=== PATIENT | male | born 1950 | race Caucasian/White ===

== ENCOUNTER → 2024-03-11 | Outpatient (CLI) | payer MEDICARE, SELFPAY | END | disposition home or self-care (01) | LOC: PSN 09:09 | PROVIDERS: PCP Family Medicine; Referring Provider Internal Medicine Critical Care Medicine; Visit Provider Internal Medicine Critical Care Medicine | DX: F17.210 Nicotine dependence, cigarettes, uncomplicated (principal) | CPT/HCPCS: 94060; 94726; 94729 ==

== ENCOUNTER → 2024-03-16 | Outpatient (CLI) | payer MEDICARE, SELFPAY ==
[2024-03-16 12:28] VITALS: PULSE 56; PULSE 60; PULSE 69; PULSE 71; PULSE 72; PULSE 73; O2SAT 86; O2SAT 88; O2SAT 90; O2SAT 91; O2SAT 92; O2SAT 93; O2SAT 94
== END | disposition home or self-care (01) ==
LOC: PSN 11:57
PROVIDERS: PCP Family Medicine; Referring Provider Internal Medicine Critical Care Medicine; Visit Provider Internal Medicine Critical Care Medicine
DX: F17.210 Nicotine dependence, cigarettes, uncomplicated (principal)
CPT/HCPCS: 94618

== ENCOUNTER 2024-12-09 08:00 | Outpatient (RCR) | payer MEDICARE, SELFPAY ==
[2024-12-02 08:13] VITALS: BP 151/89; PULSE 75; RESP 18; TEMP 36.6
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
--- NOTE | 2024-12-03 09:28 | WC ---
PHOTO-LLE 12/02/24
--- NOTE | 2024-12-03 09:28 | WC ---
PHOTO-LLE 12/02/24
--- NOTE | 2024-12-03 09:32 | WC ---
PHOTO-LLE SUP 12/02/24
--- NOTE | 2024-12-03 09:32 | WC ---
PHOTO-LLE SUP 12/02/24
[2024-12-09 08:15] VITALS: BP 153/61; PULSE 58; RESP 18; TEMP 36.2
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
--- NOTE | 2024-12-09 13:56 | WC ---
PHOTO-LLE INF 12/09/24
--- NOTE | 2024-12-09 13:56 | WC ---
PHOTO-LLE INF 12/09/24
--- NOTE | 2024-12-09 13:59 | WC ---
PHOTO-LLE SUP 12/09/24
--- NOTE | 2024-12-09 13:59 | WC ---
PHOTO-LLE SUP 12/09/24
== END 2024-12-20 23:59 | disposition home or self-care (01) ==
LOC: WC 08:00
PROVIDERS: PCP Family Medicine; Referring Provider Family Medicine; Visit Provider Nurse Practitioner
DX: I83.023 Varicose veins of left lower extremity with ulcer of ankle (principal); L97.323 Non-pressure chronic ulcer of left ankle with necrosis of muscle; L97.822 Non-pressure chronic ulcer of other part of left lower leg with fat layer exposed; L03.116 Cellulitis of left lower limb; F17.210 Nicotine dependence, cigarettes, uncomplicated; Z79.82 Long term (current) use of aspirin; Z79.899 Other long term (current) drug therapy
CPT/HCPCS: 11042; 99213; G0463

== ENCOUNTER 2025-01-13 08:00 | Outpatient (RCR) | payer MEDICARE, SELFPAY ==
[2024-12-23 08:22] VITALS: BP 148/86; PULSE 72; RESP 18; TEMP 36.1
--- NOTE | 2024-12-23 12:34 | PN.PCM_ITS ---
History of Present Illness Date of Service: 12/23/24 Chief Complaint: Left lower leg cellulitis and open wounds from blisters History of Wound: 74-year-old white male who had been apparently hiking and was wearing hiking boots and not wearing his compression stockings and not taking his water pills while on vacation developed open ulcers on his left lower leg and swelling. He states his leg is taken a lot of beatings over the year foots been broken a couple times toes have been smashed and so it is always slightly swollen at the ankle. But the ulcers and the discoloration on his lower leg is new. Recently he just had his carotids cleaned out by Dr. Curran I suggested he go back to Dr. Curran about his lower legs also get studies done I have them checked out for his veins and arteries of that foot and leg. Progress of Wound: The superior wound is is completely healed and now are just left with the left leg inferior wound. He is using Aquacel extra with Adaptic over top and XL as a P dressing over top which seems to be working well for him. Still has some little bit of depth but it is healing it is positive smaller than it has been in the past. and daughter appear with him at dressing changes and helped him a lot. He is compliant with wearing compression Subjective Subjective Patient is very anxious to have it healed but being compliant with his dressing changes and compression Objective Data Objective Data No sign of infection cultures came back negative patient doing well with the dressing changes and already 1 has healed and he just has 1 to go. Vital Signs: Vital Signs Temp Pulse Resp BP 97 F L 72 18 148/86 H 12/23/24 08:22 12/23/24 08:22 12/23/24 08:22 12/23/24 08:22 Physical Exam Const oriented x3 General Appearance: cooperative Exam Limitations: no limitations HEENT normocephalic Head and Scalp: normal to inspection Face and Sinus: normal facial exam Nose: external nose normal General Ear: hearing grossly impaired External Ear: external ears normal Eyes PERRL General Eye: normal appearance of both eyes Neck full ROM General: normal visual inspection Resp normal respiratory effort Effort and Inspection: able to speak in complete sentences Auscultation: clear to auscultation bilaterally Cardio regular rate and regular rhythm Palpation: normal PMI Rate: regular rate Rhythm: regular rhythm GI Auscultation: normoactive bowel sounds Palpation: soft and no hepatosplenomegaly external exam normal Extremity General Extremity: normal exam except as noted and other findings Other Details: Left lower leg has 2 open ulcers. Edema of the lower leg some discoloration staining the skin. Neuro oriented x3 Psych Appearance: grossly normal Speech: normal speech Thought Content: normal thought content Judgement: judgement good Debridement Note Debridement Note Post-Debridement Measurements and Additional Note: Post-Debridement Measurements/Treatment - Nurse 1 - General Ulcer Assessment Start: 12/23/24 08:22 Freq: Status: Active Protocol: ARAM Activity Type Activity Date Activity User E-sign Co-sign Detail Recorded Client Recorded Date Recorded By Document 12/23/24 08:22 ENRIQUE [id number] 12/23/24 08:25 RB 12/23/24 08:22 WC - Today's Visit Information Type of service Follow-up Visit (Physician/CORPORATE GENERAL MANAGER ) Arrival Mode Ambulatory Transfer Assistance None Patient Identification Verified (Name & Yes ) Patient Requires Transmission-Based No Precautions Vital Signs Temperature (97.8 F-99.1 F) 97 F L Temperature Source Temporal Pulse Rate (60-100) 72 Pulse Location Monitor Respiratory Rate (12-18) 18 Respiratory rate source Observation Blood Pressure (90/60-120/80) 148/86 H Blood Pressure Mean (mm Hg) 106 Source Monitor Position Semi-Fowlers Blood Pressure Location Left Arm History Since Last Visit- (Skip if this is Patient's initial visit) Have you changed medications since your No last visit? Any new allergies or adverse reactions No Had a fall/change in ADL's that may No increase risk of falls Signs or symptoms of abuse and/or No neglect since last visit Have you been in the hospital since your No last visit? Has dressing in place as prescribed Yes Has compression in place as prescribed Yes Has offloadiing in place as prescribed N/A Experienced any changes in pain level or No management Left Footwear Regular Shoe Right Footwear Regular Shoe Pain Scale: 0-10 Numeric Is Patient Pain Free? Yes - Nurse 1 - General Ulcer Measurement Start: 12/23/24 08:22 Freq: Status: Active Protocol: Activity Type Activity Date Activity User E-sign Co-sign Detail Recorded Client Recorded Date Recorded By Document 12/23/24 08:22 ENRIQUE [id number] 12/23/24 08:25 RB 12/23/24 08:22 Wound Center Nurse 1 #2 LLE Sup -Combined with other wound No -Current Size (cm) - Length 0.1 -Current Size (cm) - Width 0.1 -Current Size (cm) - Depth 0.1 -Total Square Cm 0.01 -Photo Taken Yes -Tunneling No -Undermining/Tunneling No -Circular Undermining No -Exudate Amt Medium -Exudate Type Serosanguineous -Wound Margin Distinct, Outline Attached -Granulation Amt Medium (34-66%) -Granulation Quality [place] -Slough/Fibrin Yes -Necrosis Amt Medium (34-66%) -Necrotic Tissue Type Adherent Slough -Structure Exposed N/A -Texture (Dania-wound Skin Appearance) Assessed -Moisture (Dania-wound Skin Appearance) Assessed, Maceration -Color (Dania-wound Skin Appearance) Assessed -Temperature (Dania-wound Skin No Abnormality Appearance) (Pt Warm) -Tenderness on Palpation (Dania-wound No Skin Appearance) -Ulcer Cleansing Wound Cleanser -Foul Odor after Cleansing No -Anesthetic Used 5% Lidocaine Gel #1 LLe Inf -Combined with other wound No -Current Size (cm) - Length 1.7 -Current Size (cm) - Width 1 -Current Size (cm) - Depth 0.1 -Total Square Cm 1.7 -Photo Taken Yes -Tunneling No -Undermining/Tunneling No -Circular Undermining No -Exudate Amt Medium -Exudate Type Serosanguineous -Wound Margin Distinct, Outline Attached -Granulation Amt Medium (34-66%) -Granulation Quality [place] -Slough/Fibrin Yes -Necrosis Amt Medium (34-66%) -Necrotic Tissue Type Adherent Slough -Structure Exposed N/A -Texture (Dania-wound Skin Appearance) Assessed -Moisture (Dania-wound Skin Appearance) Assessed, Maceration -Color (Dania-wound Skin Appearance) Assessed -Temperature (Dania-wound Skin No Abnormality Appearance) (Pt Warm) -Tenderness on Palpation (Dania-wound No Skin Appearance) -Ulcer Cleansing Wound Cleanser -Foul Odor after Cleansing No -Anesthetic Used 5% Lidocaine Gel Lower Limb Edema Present Yes Left Calf (cm) 36.2 Left Ankle (cm) 25 WC - Nurse 2 - General Ulcer CM Notes Start: 12/23/24 08:22 Freq: Status: Active Protocol: Activity Type Activity Date Activity User E-sign Co-sign Detail Recorded Client Recorded Date Recorded By Document 12/23/24 08:30 [facility] [id number] 12/23/24 08:33 [facility] 12/23/24 08:30 Wound Center Nurse 2 #2 LLE Sup -Time 08:31 -Procedure Performed No -Post Debridement (cm) - Length 0 -Post Debridement (cm) - Width 0 -Post Debridement (cm) - Depth 0 -Total Square (Post) (cm) 0 -Area of Debridement (cm) - Length 0 -Area of Debridement (cm) - Width 0 -Total Square (Area) (cm) 0 -Wound/Ulcer Outcome Healed- Epithelialized -Bleeding Controlled with NA #1 LLe Inf -Time 08:31 -Correct Patient Yes -Correct Side, Site, Position Yes -Correct Procedure Yes -Procedure Performed Yes -Type of Procedure Debridement -Clinical Debridement Subcutaneous -Tissue Removed Subcutaneous -Post Debridement (cm) - Length 2 -Post Debridement (cm) - Width 1.2 -Post Debridement (cm) - Depth 0.1 -Total Square (Post) (cm) 2.4 -Area of Debridement (cm) - Length 2 -Area of Debridement (cm) - Width 1.2 -Total Square (Area) (cm) 2.4 -Tunneling No -Undermining/Tunneling No -Circular Undermining No -Wound/Ulcer Outcome Not Healed -Ulcer Cleansing Rinsed/ Irrigated with Saline -Foul Odor after Cleansing No -Bioengineered Tissue No -Bleeding Controlled with Pressure -Treatment Response Procedure Tolerated Well -Debridement - Subq, 1st 20sq cm Yes Pain Scale: 0-10 Numeric Is Patient Pain Free? Yes WC - Nurse 3 - General Ulcer D/C NN Start: 12/23/24 08:22 Freq: Status: Active Protocol: Activity Type Activity Date Activity User E-sign Co-sign Detail Recorded Client Recorded Date Recorded By Document 12/23/24 08:47 RB [id number] 12/23/24 08:48 RB 12/23/24 08:47 Wound Care Center Nurse 3 #1 LLe Inf -Ulcer Cleansing Rinsed/ Irrigated with Saline -Primary Dressing Applied Aquacel Extra, NonAdherent Contact Layer, Silicone Border Foam 6x6 -Aquacel Extra 1 -Silicone Border Foam 6x6 1 LLE -Tubular Bandage Double Layer -Size of Tubigrip Used Size E -Size E ($) 2 Treatment Response Procedure Tolerated Well Pain Scale: 0-10 Numeric Is Patient Pain Free? Yes WC - Visit Discharge Discharge Condition Stable Ambulatory Status Ambulatory Transportation Private Auto Medication Reconcilliation completed & No provided to patient/care provider Clinical Summary of Care Provided Yes Additional Wound Wound debrided: Inferior ulcer left leg Laterality: Left Type of Debridement: Excisional debridement Anesthesia Used: 5% Lidocaine Gel Depth: in the subcutaneous layer Percentage of wound debrided: 100 Instrument Used: 5mm curette Tissue Removed: Slough some fibrin and devitalized tissue Severity: Fat Layer Exposed Amount of bleeding with debridement: Mild Bleeding Controlled with: Compression and gauze Patient tolerated procedure: Patient tolerated procedure well Assessment/Plan Assessment/Plan (1) 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 Curran about his lower extremity veins and arteries to be worked up for blockages in the veins connectors (2) Non-pressure ulcer of left lower extremity with fat layer exposed: CODE(S): L97.922 - Non-pressure chronic ulcer of unspecified part of left lower leg with fat layer exposed PLAN: Wash left leg with antibacterial soap and water pat dry. Apply Aquacel extra to wound base moistened with Adaptic over top and a absorbent [place] SAP dressing over top. This will be done every day Apply double layer Tubigrip to the left leg and to the right leg he can continue wearing his compression stocking Follow-up in 1 week (3) Venous ulcer of left leg: CODE(S): I83.029 - Varicose veins of left lower extremity with ulcer of unspecified site; L97.929 - Non-pressure chronic ulcer of unspecified part of le ft lower leg with unspecified severity
--- NOTE | 2024-12-24 09:23 | WC ---
PHOTO- LLE 12/23/24
[2024-12-30 08:22] VITALS: BP 125/70; PULSE 76; RESP 18; TEMP 36.1
--- NOTE | 2024-12-30 11:25 | PCM.WC.PN ---
History of Present Illness Date of Service: 12/30/24 Chief Complaint: Left lower leg cellulitis and open wounds from blisters History of Wound: 74-year-old white male who had been apparently hiking and was wearing hiking boots and not wearing his compression stockings and not taking his water pills while on vacation developed open ulcers on his left lower leg and swelling. He states his leg is taken a lot of beatings over the year foots been broken a couple times toes have been smashed and so it is always slightly swollen at the ankle. But the ulcers and the discoloration on his lower leg is new. Recently he just had his carotids cleaned out by Dr. Curran I suggested he go back to Dr. Curran about his lower legs also get studies done I have them checked out for his veins and arteries of that foot and leg. Progress of Wound: The superior wound is is completely healed and now are just left with the left leg inferior wound. He is using Aquacel extra with Adaptic over top and XL as a dressing over top which seems to be working well for him. Still has some little bit of depth but it is healing it is positive smaller than it has been in the past. and daughter appear with him at dressing changes and helped him a lot. He is compliant with wearing compression Subjective Subjective Patient is happy with outcomes still getting smaller but it is slow Objective Data Objective Data No sign of infection measurements are smaller more shallow looks more superficial no redness around the area Vital Signs: Vital Signs Temp Pulse Resp BP 97 F L 76 18 125/70 H 12/30/24 08:22 12/30/24 08:22 12/30/24 08:22 12/30/24 08:22 Lab / Micro Data Attestation: I reviewed the patient's lab results. Physical Exam Const oriented x3 General Appearance: cooperative Exam Limitations: no limitations HEENT normocephalic Head and Scalp: normal to inspection Face and Sinus: normal facial exam Nose: external nose normal General Ear: hearing grossly impaired External Ear: external ears normal Eyes PERRL General Eye: normal appearance of both eyes Neck full ROM General: normal visual inspection Resp normal respiratory effort Effort and Inspection: able to speak in complete sentences Auscultation: clear to auscultation bilaterally Cardio regular rate and regular rhythm Palpation: normal PMI Rate: regular rate Rhythm: regular rhythm GI Auscultation: normoactive bowel sounds Palpation: soft and no hepatosplenomegaly external exam normal Extremity General Extremity: normal exam except as noted and other findings Other Details: Left lower leg has 2 open ulcers. Edema of the lower leg some discoloration staining the skin. Neuro oriented x3 Psych Appearance: grossly normal Speech: normal speech Thought Content: normal thought content Judgement: judgement good Debridement Note Debridement Note Post-Debridement Measurements and Additional Note: Post-Debridement Measurements/Treatment - Nurse 1 - General Ulcer Assessment Start: 12/23/24 08:22 Freq: Status: Active Protocol: [facility] Activity Type Activity Date Activity User E-sign Co-sign Detail Recorded Client Recorded Date Recorded By Document 12/23/24 08:22 RB [id number] 12/23/24 08:25 RB Document 12/30/24 08:22 RB [id number] 12/30/24 08:24 RB 12/23/24 12/30/24 08:22 08:22 - Today's Visit Information Type of service Follow-up Visit Follow-up Visit (Physician/DOORPERSON OR LUGGAGE PORTER (Physician/DOORPERSON OR LUGGAGE PORTER ) ) Arrival Mode Ambulatory Ambulatory Transfer Assistance None None Patient Identification Verified (Name & Yes Yes ) Patient Requires Transmission-Based No No Precautions Vital Signs Temperature (97.8 F-99.1 F) 97 F L 97 F L Temperature Source Temporal Temporal Pulse Rate (60-100) 72 76 Pulse Location Monitor Monitor Respiratory Rate (12-18) 18 18 Respiratory rate source Observation Observation Blood Pressure (90/60-120/80) 148/86 H 125/70 H Blood Pressure Mean (mm Hg) 106 88 Source Monitor Monitor Position Semi-Fowlers Semi-Fowlers Blood Pressure Location Left Arm Left Arm History Since Last Visit- (Skip if this is Patient's initial visit) Have you changed medications since your No No last visit? Any new allergies or adverse reactions No No Had a fall/change in ADL's that may No No increase risk of falls Signs or symptoms of abuse and/or No No neglect since last visit Have you been in the hospital since your No No last visit? Has dressing in place as prescribed Yes Yes Has compression in place as prescribed Yes Yes Has offloadiing in place as prescribed N/A N/A Experienced any changes in pain level or No No management Left Footwear Regular Shoe Regular Shoe Right Footwear Regular Shoe Regular Shoe Pain Scale: 0-10 Numeric Is Patient Pain Free? Yes Yes WC - Nurse 1 - General Ulcer Measurement Start: 12/23/24 08:22 Freq: Status: Active Protocol: Activity Type Activity Date Activity User E-sign Co-sign Detail Recorded Client Recorded Date Recorded By Document 12/23/24 08:22 RB [id number] 12/23/24 08:25 RB Document 12/30/24 08:22 RB [id number] 12/30/24 08:24 RB 12/23/24 12/30/24 08:22 08:22 Wound Center Nurse 1 #2 LLE Sup -Combined with other wound No -Current Size (cm) - Length 0.1 -Current Size (cm) - Width 0.1 -Current Size (cm) - Depth 0.1 -Total Square Cm 0.01 -Photo Taken Yes -Tunneling No -Undermining/Tunneling No -Circular Undermining No -Exudate Amt Medium -Exudate Type Serosanguineous -Wound Margin Distinct, Outline Attached -Granulation Amt Medium (34-66%) -Granulation Quality [place] -Slough/Fibrin Yes -Necrosis Amt Medium (34-66%) -Necrotic Tissue Type Adherent Slough -Structure Exposed N/A -Texture (Dania-wound Skin Appearance) Assessed -Moisture (Dania-wound Skin Appearance) Assessed, Maceration -Color (Dania-wound Skin Appearance) Assessed -Temperature (Dania-wound Skin No Abnormality Appearance) (Pt Warm) -Tenderness on Palpation (Dania-wound No Skin Appearance) -Ulcer Cleansing Wound Cleanser -Foul Odor after Cleansing No -Anesthetic Used 5% Lidocaine Gel #1 LLe Inf -Combined with other wound No No -Current Size (cm) - Length 1.7 1.4 -Current Size (cm) - Width 1 0.7 -Current Size (cm) - Depth 0.1 0.1 -Total Square Cm 1.7 0.98 -Photo Taken Yes Yes -Tunneling No No -Undermining/Tunneling No No -Circular Undermining No No -Exudate Amt Medium Medium -Exudate Type Serosanguineous Serosanguineous -Wound Margin Distinct, Distinct, Outline Outline Attached Attached -Granulation Amt Medium (34-66%) Medium (34-66%) -Granulation Quality [place] -Slough/Fibrin Yes Yes -Necrosis Amt Medium (34-66%) Small (1-33%) -Necrotic Tissue Type Adherent Slough Adherent Slough -Structure Exposed N/A N/A -Texture (Dania-wound Skin Appearance) Assessed Assessed -Moisture (Daina-wound Skin Appearance) Assessed, Assessed Maceration -Color (Dania-wound Skin Appearance) Assessed Assessed -Temperature (Dania-wound Skin No Abnormality No Abnormality Appearance) (Pt Warm) (Pt Warm) -Tenderness on Palpation (Dania-wound No No Skin Appearance) -Ulcer Cleansing Wound Cleanser Wound Cleanser -Foul Odor after Cleansing No No -Anesthetic Used 5% Lidocaine 5% Lidocaine Gel Gel Lower Limb Edema Present Yes Yes Left Calf (cm) 36.2 36.8 Left Ankle (cm) 25 24.5 WC - Nurse 2 - General Ulcer CM Notes Start: 12/23/24 08:22 Freq: Status: Active Protocol: Activity Type Activity Date Activity User E-sign Co-sign Detail Recorded Client Recorded Date Recorded By Document 12/23/24 08:30 [facility] [id number] 12/23/24 08:33 [facility] Document 12/30/24 08:30 [facility] [id number] 12/30/24 08:34 [facility] 12/23/24 12/30/24 08:30 08:30 Wound Center Nurse 2 #2 LLE Sup -Time 08:31 -Procedure Performed No -Post Debridement (cm) - Length 0 -Post Debridement (cm) - Width 0 -Post Debridement (cm) - Depth 0 -Total Square (Post) (cm) 0 -Area of Debridement (cm) - Length 0 -Area of Debridement (cm) - Width 0 -Total Square (Area) (cm) 0 -Wound/Ulcer Outcome Healed- Epithelialized -Bleeding Controlled with NA #1 LLe Inf -Time 08:31 08:31 -Correct Patient Yes Yes -Correct Side, Site, Position Yes Yes -Correct Procedure Yes Yes -Procedure Performed Yes Yes -Type of Procedure Debridement Debridement -Clinical Debridement Subcutaneous Subcutaneous -Tissue Removed Subcutaneous Subcutaneous -Post Debridement (cm) - Length 2 1.8 -Post Debridement (cm) - Width 1.2 1.2 -Post Debridement (cm) - Depth 0.1 0.1 -Total Square (Post) (cm) 2.4 2.16 -Area of Debridement (cm) - Length 2 1.8 -Area of Debridement (cm) - Width 1.2 1.2 -Total Square (Area) (cm) 2.4 2.16 -Tunneling No No -Undermining/Tunneling No No -Circular Undermining No No -Wound/Ulcer Outcome Not Healed Not Healed -Ulcer Cleansing Rinsed/ Rinsed/ Irrigated with Irrigated with Saline Saline -Foul Odor after Cleansing No No -Bioengineered Tissue No No -Bleeding Controlled with Pressure Pressure -Treatment Response Procedure Procedure Tolerated Well Tolerated Well -Debridement - Subq, 1st 20sq cm Yes Yes Pain Scale: 0-10 Numeric Is Patient Pain Free? Yes Yes - Nurse 3 - General Ulcer D/C NN Start: 12/23/24 08:22 Freq: Status: Active Protocol: Activity Type Activity Date Activity User E-sign Co-sign Detail Recorded Client Recorded Date Recorded By Document 12/23/24 08:47 [id number] 12/23/24 08:48 Document 12/30/24 08:46 [facility] [id number] 12/30/24 08:48 [facility] 12/23/24 12/30/24 08:47 08:46 Wound Care Center Nurse 3 #1 LLe Inf -Ulcer Cleansing Rinsed/ Irrigated with Saline -Primary Dressing Applied Aquacel Extra, Aquacel Extra, NonAdherent Silicone Border Contact Layer, Foam 4x4 Silicone Border Foam 6x6 -Other Dressing ADAPTIC, FOAM -Aquacel Extra 1 1 -Silicone Border Foam 4x4 1 -Silicone Border Foam 6x6 1 LLE -Tubular Bandage Double Layer Double Layer -Size of Tubigrip Used Size E Size E -Size E ($) 2 2 Treatment Response Procedure Tolerated Well Pain Scale: 0-10 Numeric Is Patient Pain Free? Yes Yes - Visit Discharge Discharge Condition Stable Stable Ambulatory Status Ambulatory Ambulatory Transportation Private Auto Private Auto Medication Reconcilliation completed & No No provided to patient/care provider Clinical Summary of Care Provided Yes Yes Notes: NO QUESTIONS COMMENTS OR CONCERNS FROM PATIENT. VERBALIZED UNDERSTANDING OF WOUND DRESSING. 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 Curran about his lower extremity veins and arteries to be worked up for blockages in the veins connectors (2) Non-pressure ulcer of left lower extremity with fat layer exposed: CODE(S): L97.922 - Non-pressure chronic ulcer of unspecified part of left lower leg with fat layer exposed PLAN: Wash left leg with antibacterial soap and water pat dry. Apply Aquacel extra to wound base moistened with Adaptic over top and a absorbent [place] SAP dressing over top. This will be done every day Apply double layer Tubigrip to the left leg and to the right leg he can continue wearing his compression stocking Follow-up in 1 week (3) Venous ulcer of left leg: CODE(S): I83.029 - Varicose veins of left lower extremity with ulcer of unspecified site; L97.929 - Non-pressure chronic ulcer of unspecified part of left lower leg with unspecified severity
--- NOTE | 2024-12-30 12:47 | WC ---
PHOTO-LLE INF 12/30/24
[2025-01-06 08:14] VITALS: BP 149/76; PULSE 59; RESP 18; TEMP 35.8
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
[2025-01-13 08:14] VITALS: BP 146/58; PULSE 56; RESP 18; TEMP 36.2
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
--- NOTE | 2025-01-14 14:14 | WC ---
PHOTO-LLE 01/13/25
== END 2025-01-19 23:59 | disposition home or self-care (01) ==
LOC: WC 08:00
PROVIDERS: PCP Family Medicine; Referring Provider Family Medicine; Visit Provider Nurse Practitioner
DX: I83.028 Varicose veins of left lower extremity with ulcer other part of lower leg (principal); L97.822 Non-pressure chronic ulcer of other part of left lower leg with fat layer exposed; L03.116 Cellulitis of left lower limb; R60.0 Localized edema
CPT/HCPCS: 11042

== ENCOUNTER 2025-01-27 08:00 | Outpatient (RCR) | payer MEDICARE, SELFPAY ==
[2025-01-20 08:15] VITALS: BP 148/86; PULSE 67; RESP 16; TEMP 36.1
--- NOTE | 2025-01-20 12:36 | PCM.WC.PN ---
History of Present Illness Date of Service: 01/20/25 Chief Complaint: Left lower leg cellulitis and open wounds from blisters History of Wound: 74-year-old white male who had been apparently hiking and was wearing hiking boots and not wearing his compression stockings and not taking his water pills while on vacation developed open ulcers on his left lower leg and swelling. He states his leg is taken a lot of beatings over the year foots been broken a couple times toes have been smashed and so it is always slightly swollen at the ankle. But the ulcers and the discoloration on his lower leg is new. Recently he just had his carotids cleaned out by Dr. Curran I suggested he go back to Dr. Curran about his lower legs also get studies done I have them checked out for his veins and arteries of that foot and leg. Progress of Wound: Left lower inferior ocasio is almost healed probably another week we will switch him over to the Promogran from [employer] and see we can close this up it is very superficial. Subjective Subjective Patient is pleased that he will be healed in a week Objective Data Objective Data No sign of infection skin color is continuity is good it is all pink and normal color and flush. No sign of infection healing well describes no pain Vital Signs: Vital Signs Temp Pulse Resp BP 97 F L 67 16 148/86 H 01/20/25 08:15 01/20/25 08:15 01/20/25 08:15 01/20/25 08:15 Physical Exam Const oriented x3 General Appearance: cooperative Exam Limitations: no limitations HEENT normocephalic Head and Scalp: normal to inspection Face and Sinus: normal facial exam Nose: external nose normal General Ear: hearing grossly impaired External Ear: external ears normal Eyes PERRL General Eye: normal appearance of both eyes Neck full ROM General: normal visual inspection Resp normal respiratory effort Effort and Inspection: able to speak in complete sentences Auscultation: clear to auscultation bilaterally Cardio regular rate and regular rhythm Palpation: normal PMI Rate: regular rate Rhythm: regular rhythm GI Auscultation: normoactive bowel sounds Palpation: soft and no hepatosplenomegaly external exam normal Extremity General Extremity: normal exam except as noted and other findings Other Details: Left lower leg has 2 open ulcers. Edema of the lower leg some discoloration staining the skin. 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 Any new allergies or adverse reactions No Had a fall/change in ADL's that may No increase risk of falls Signs or symptoms of abuse and/or No neglect since last visit Have you been in the hospital since your No last visit? Has dressing in place as prescribed Yes Has compression in place as prescribed Yes Has offloadiing in place as prescribed N/A Experienced any changes in pain level or No management Left Footwear Regular Shoe Right Footwear Regular Shoe Pain Scale: 0-10 Numeric Is Patient Pain Free? Yes [facility] Nurse 1 - General Ulcer Measurement Start: 01/20/25 08:15 Freq: Status: Active Protocol: Activity Type Activity Date Activity User E-sign Co-sign Detail Recorded Client Recorded Date Recorded By Document 01/20/25 08:15 ANDRIY [id number] 01/20/25 08:19 CP 01/20/25 08:15 Wound Center Nurse 1 #1 LLe Inf -Current Size (cm) - Length 1 -Current Size (cm) - Width 0.4 -Current Size (cm) - Depth 0.1 -Total Square Cm 0.4 -Date of Last Picture (Recall this 10/01/25 field) -Wound Margin Flat & Intact -Granulation Amt Large (67-100%) -Granulation Quality [place] -Slough/Fibrin Yes -Necrosis Amt Small (1-33%) -Necrotic Tissue Type Adherent Slough -Structure Exposed N/A -Texture (Dania-wound Skin Appearance) No Abnormality -Moisture (Dania-wound Skin Appearance) No Abnormality -Color (Dania-wound Skin Appearance) No Abnormality -Temperature (Dania-wound Skin No Abnormality Appearance) (Pt Warm) -Tenderness on Palpation (Dania-wound No Skin Appearance) -Ulcer Cleansing Soap and Water -Foul Odor after Cleansing No -Anesthetic Used 5% Lidocaine Gel Left Calf (cm) 38 Left Ankle (cm) 24 WC - Nurse 2 - General Ulcer CM Notes Start: 01/20/25 08:15 Freq: Status: Active Protocol: Activity Type Activity Date Activity User E-sign Co-sign Detail Recorded Client Recorded Date Recorded By Document 01/20/25 08:35 DS [id number] 01/20/25 08:38 DS 01/20/25 08:35 Wound Center Nurse 2 #1 LLe Inf -Time 08:35 -Correct Patient Yes -Correct Side, Site, Position Yes -Correct Procedure Yes -Procedure Performed Yes -Type of Procedure Debridement -Clinical Debridement Subcutaneous -Tissue Removed Subcutaneous -Post Debridement (cm) - Length 0.9 -Post Debridement (cm) - Width 0.2 -Post Debridement (cm) - Depth 0.1 -Total Square (Post) (cm) 0.18 -Area of Debridement (cm) - Length 0.9 -Area of Debridement (cm) - Width 0.2 -Total Square (Area) (cm) 0.18 -Tunneling No -Undermining/Tunneling No -Circular Undermining No -Wound/Ulcer Outcome Not Healed -Ulcer Cleansing Rinsed/ Irrigated with Saline -Foul Odor after Cleansing No -Bioengineered Tissue No -Bleeding Controlled with Pressure -Treatment Response Procedure Tolerated Well -Debridement - Subq, 1st 20sq cm Yes Pain Scale: 0-10 Numeric Is Patient Pain Free? Yes - Nurse 3 - General Ulcer D/C NN Start: 01/20/25 08:15 Freq: Status: Active Protocol: Activity Type Activity Date Activity User E-sign Co-sign Detail Recorded Client Recorded Date Recorded By Document 01/20/25 08:44 CP [id number] 01/20/25 08:46 CP 01/20/25 08:44 Wound Care Center Nurse 3 #1 LLe Inf -Ulcer Cleansing Rinsed/ Irrigated with Saline -Primary Dressing Applied Promogran, Silicone Border Foam 4x4 -Promogran 1 -Silicone Border Foam 4x4 1 LLE -Tubular Bandage Double Layer -Size of Tubigrip Used Size E -Size E ($) 2 Pain Scale: 0-10 Numeric Is Patient Pain Free? Yes WC - Visit Discharge Discharge Condition Stable Ambulatory Status Ambulatory Transportation Private Auto Clinical Summary of Care Provided Yes Additional Wound Wound debrided: Inferior ulcer left leg Laterality: Left Type of Debridement: Excisional debridement Anesthesia Used: 5% Lidocaine Gel Depth: in the subcutaneous layer Percentage of wound debrided: 100 Instrument Used: 3mm curette Tissue Removed: Slough some fibrin and devitalized tissue Severity: Fat Layer Exposed Amount of bleeding with debridement: Mild Bleeding Controlled with: Compression and gauze Patient tolerated procedure: Patient tolerated procedure well Assessment/Plan Assessment/Plan (1) 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 Curran about his lower extremity veins and arteries to be worked up for blockages in the veins connectors (2) Non-pressure ulcer of left lower extremity with fat layer exposed: CODE(S): L97.922 - Non-pressure chronic ulcer of unspecified part of left lower leg with fat layer exposed PLAN: Wash left leg with antibacterial soap and water pat dry. Apply Promogran to wound base moistened with Adaptic over top and a absorbent [place] SAP dressing over top. This will be done every day Apply double layer Tubigrip to the left leg and to the right leg he can continue wearing his compression stocking Follow-up in 1 week (3) Venous ulcer of left leg: CODE(S): I83.029 - Varicose veins of left lower extremity with ulcer of unspecified site; L97.929 - Non-pressure chronic ulcer of unspecified part of left lower leg with unspecified severity
--- NOTE | 2025-01-21 09:09 | WC ---
PHOTO-LLE 01/20/25
[2025-01-27 08:09] VITALS: BP 134/53; PULSE 63; RESP 15; TEMP 35.9
--- NOTE | 2025-01-27 08:31 | PCM.WC.PN ---
History of Present Illness Date of Service: 01/27/25 Chief Complaint: Left lower leg cellulitis and open wounds from blisters History of Wound: 74-year-old white male who had been apparently hiking and was wearing hiking boots and not wearing his compression stockings and not taking his water pills while on vacation developed open ulcers on his left lower leg and swelling. He states his leg is taken a lot of beatings over the year foots been broken a couple times toes have been smashed and so it is always slightly swollen at the ankle. But the ulcers and the discoloration on his lower leg is new. Recently he just had his carotids cleaned out by Dr. Curran I suggested he go back to Dr. Curran about his lower legs also get studies done I have them checked out for his veins and arteries of that foot and leg. Progress of Wound: Left lower inferior ocasio is healed and patient will be discharged from the wound center Subjective Subjective Patient was pleased with outcomes Objective Data Objective Data No sign of infection skin healed very well all is well-approximated Vital Signs: Vital Signs Temp Pulse Resp BP 96.7 F L 63 15 134/53 H 01/27/25 08:09 01/27/25 08:09 01/27/25 08:09 01/27/25 08:09 Physical Exam Const oriented x3 General Appearance: cooperative Exam Limitations: no limitations HEENT normocephalic Head and Scalp: normal to inspection Face and Sinus: normal facial exam Nose: external nose normal General Ear: hearing grossly impaired External Ear: external ears normal Eyes PERRL General Eye: normal appearance of both eyes Neck full ROM General: normal visual inspection Resp normal respiratory effort Effort and Inspection: able to speak in complete sentences Auscultation: clear to auscultation bilaterally Cardio regular rate and regular rhythm Palpation: normal PMI Rate: regular rate Rhythm: regular rhythm GI Auscultation: normoactive bowel sounds Palpation: soft and no hepatosplenomegaly external exam normal Extremity General Extremity: normal exam except as noted and other findings Other Details: Left lower leg has 2 open ulcers. Edema of the lower leg some discoloration staining the skin. Neuro oriented x3 Psych Appearance: grossly normal Speech: normal speech Thought Content: normal thought content Judgement: judgement good Debridement Note Debridement Note No debridement was completed: No debridement was completed today Post-Debridement Measurements and Additional Note: Post-Debridement Measurements/Treatment WC - Nurse 1 - General Ulcer Assessment Start: 01/20/25 08:15 Freq: Status: Active Protocol: ARAM Activity Type Activity Date Activity User E-sign Co-sign Detail Recorded Client Recorded Date Recorded By Document 01/20/25 08:15 CP [id number] 01/20/25 08:19 CP Document 01/27/25 08:09 ML [id number] 01/27/25 08:17 ML 01/20/25 01/27/25 08:15 08:09 WC - Today's Visit Information Type of service Follow-up Visit 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 ) ) Arrival Mode Ambulatory Ambulatory Transfer Assistance None Patient Identification Verified (Name & Yes Yes ) Patient Requires Transmission-Based No Precautions Safety Precautions NA Vital Signs Temperature (97.8 F-99.1 F) 97 F L 96.7 F L Temperature Source Temporal Temporal Pulse Rate (60-100) 67 63 Pulse Location Monitor Monitor Respiratory Rate (12-18) 16 15 Respiratory rate source Observation Observation Blood Pressure (90/60-120/80) 148/86 H 134/53 H Blood Pressure Mean (mm Hg) 106 80 Source Monitor Monitor Position Sitting Sitting Blood Pressure Location Right Arm Right Arm History Since Last Visit- (Skip if this is Patient's initial visit) Have you changed medications since your No No last visit? Any new allergies or adverse reactions No No Had a fall/change in ADL's that may No No increase risk of falls Signs or symptoms of abuse and/or No No neglect since last visit Have you been in the hospital since your No No last visit? Has dressing in place as prescribed Yes Yes Has compression in place as prescribed Yes Yes Has offloadiing in place as prescribed N/A Yes Experienced any changes in pain level or No No management Left Footwear Regular Shoe Right Footwear Regular Shoe Pain Scale: 0-10 Numeric Is Patient Pain Free? Yes Yes - Nurse 1 - General Ulcer Measurement Start: 01/20/25 08:15 Freq: Status: Active Protocol: Activity Type Activity Date Activity User E-sign Co-sign Detail Recorded Client Recorded Date Recorded By Document 01/20/25 08:15 CP [id number] 01/20/25 08:19 CP Document 01/27/25 08:09 ML [id number] 01/27/25 08:17 ML 01/20/25 01/27/25 08:15 08:09 Wound Center Nurse 1 #1 LLe Inf -Current Size (cm) - Length 1 0.1 -Current Size (cm) - Width 0.4 0.1 -Current Size (cm) - Depth 0.1 0.1 -Total Square Cm 0.4 0.01 -Date of Last Picture (Recall this 01/20/25 field) -Exudate Amt Small -Exudate Type Serosanguineous -Wound Margin Flat & Intact -Granulation Amt Large (67-100%) -Granulation Quality [place] -Slough/Fibrin Yes No -Necrosis Amt Small (1-33%) None Present (0 %) -Necrotic Tissue Type Adherent Slough -Structure Exposed N/A -Texture (Dnaia-wound Skin Appearance) No Abnormality Assessed -Moisture (Dania-wound Skin Appearance) No Abnormality Assessed -Color (Dania-wound Skin Appearance) No Abnormality Assessed -Temperature (Dania-wound Skin No Abnormality No Abnormality Appearance) (Pt Warm) (Pt Warm) -Tenderness on Palpation (Dania-wound No No Skin Appearance) -Ulcer Cleansing Soap and Water Rinsed/ Irrigated with Saline -Foul Odor after Cleansing No No -Anesthetic Used 5% Lidocaine 5% Lidocaine Gel Gel Left Calf (cm) 38 Left Ankle (cm) 24 WC - Nurse 2 - General Ulcer CM Notes Start: 01/20/25 08:15 Freq: Status: Active Protocol: Activity Type Activity Date Activity User E-sign Co-sign Detail Recorded Client Recorded Date Recorded By Document 01/20/25 08:35 DS [id number] 01/20/25 08:38 DS Document 01/27/25 08:29 DS [id number] 01/27/25 08:29 DS 01/20/25 01/27/25 08:35 08:29 Wound Center Nurse 2 #1 LLe Inf -Time 08:35 08:29 -Correct Patient Yes Yes -Correct Side, Site, Position Yes Yes -Correct Procedure Yes -Procedure Performed Yes No -Type of Procedure Debridement -Clinical Debridement Subcutaneous -Tissue Removed Subcutaneous -Post Debridement (cm) - Length 0.9 -Post Debridement (cm) - Width 0.2 -Post Debridement (cm) - Depth 0.1 -Total Square (Post) (cm) 0.18 -Area of Debridement (cm) - Length 0.9 -Area of Debridement (cm) - Width 0.2 -Total Square (Area) (cm) 0.18 -Tunneling No -Undermining/Tunneling No -Circular Undermining No -Wound/Ulcer Outcome Not Healed Healed- Epithelialized -Ulcer Cleansing Rinsed/ Irrigated with Saline -Foul Odor after Cleansing No -Bioengineered Tissue No -Bleeding Controlled with Pressure -Treatment Response Procedure Tolerated Well -Debridement - Subq, 1st 20sq cm Yes Pain Scale: 0-10 Numeric Is Patient Pain Free? Yes Yes - Nurse 3 - General Ulcer D/C NN Start: 01/20/25 08:15 Freq: Status: Active Protocol: Activity Type Activity Date Activity User E-sign Co-sign Detail Recorded Client Recorded Date Recorded By Document 01/20/25 08:44 CP [id number] 01/20/25 08:46 CP Document 01/27/25 08:30 DS [id number] 01/27/25 08:30 DS 01/20/25 01/27/25 08:44 08:30 Wound Care Center Nurse 3 #1 LLe Inf -Ulcer Cleansing Rinsed/ Irrigated with Saline -Primary Dressing Applied Promogran, Silicone Border Foam 4x4 -Promogran 1 -Silicone Border Foam 4x4 1 -Wound Comment(s) healed - pt dc no dressing LLE -Tubular Bandage Double Layer -Size of Tubigrip Used Size E -Size E ($) 2 Pain Scale: 0-10 Numeric Is Patient Pain Free? 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 Curran about his lower extremity veins and arteries to be worked up for blockages in the veins connectors (2) Non-pressure ulcer of left lower extremity with fat layer exposed: CODE(S): L97.922 - Non-pressure chronic ulcer of unspecified part of left lower leg with fat layer exposed PLAN: Discharge from the wound center and follow-up as needed. (3) Venous ulcer of left leg: CODE(S): I83.029 - Varicose veins of left lower extremity with ulcer of unspecified site; L97.929 - Non-pressure chronic ulcer of unspecified part of left lower leg with unspecified severity
--- NOTE | 2025-01-28 09:11 | WC ---
PHOTO-LLE 01/27/25
== END 2025-01-27 13:57 | disposition home or self-care (01) ==
LOC: WC 08:00
PROVIDERS: PCP Family Medicine; Referring Provider Family Medicine; Visit Provider Nurse Practitioner
DX: I83.023 Varicose veins of left lower extremity with ulcer of ankle (principal); L97.322 Non-pressure chronic ulcer of left ankle with fat layer exposed; L03.116 Cellulitis of left lower limb
CPT/HCPCS: 11042; 99212; G0463

== ENCOUNTER → 2025-03-11 | Outpatient (CLI) | payer MEDICARE, SELFPAY ==
--- NOTE | 2025-03-11 15:01 | CT_ITS ---
PROCEDURE: LOW DOSE CT LUNG SCREENING 03/11/2025 REASON FOR EXAM: SMOKING 1 pack per day smoker times 50 years TECHNIQUE: Procedure Code: CTLUNGSCREEN Modality: CT Procedure: LOW DOSE CT LUNG SCREENING Coronal and Sagittal reconstruction series were provided. One or more dose reduction techniques were used (e.g., Automated exposure control, adjustment of the mA and/or kV according to patient size, use of iterative reconstruction technique). REFERENCE LINK: [facility] Lung-RADS RADIATION DOSE SUMMARY: CTDlvol: mGy DLP: 88.92 mGycm COMPARISON: Previous plain films FINDINGS: Lung windows show underlying emphysema with bleb formation throughout both lung ruvalcaba and peripheral honeycombing. Chronic interstitial fibrotic changes around the periphery of both lung ruvalcaba noted along with evidence of chronic bronchitis. There is no organized infiltrate or effusion. No suspicious noncalcified mass or nodule. The limited soft tissue windows show a normal-appearing thyroid gland. No suspicious axillary, mediastinal or perihilar adenopathy. Peripheral calcifications in the thoracic aorta without aneurysm. There are calcified coronary vessels. Limited cuts through the upper abdomen do not show a suspicious abnormality. Bony structures show degenerative change CT/Low Dose CT Lung Screening IMPRESSION: Underlying emphysema with chronic interstitial fibrotic changes in both lung fi elds. No superimposed acute pulmonary process Coronary artery calcification (CAC) is is present Lung-RADS Category: 2 BENIGN (BASED ON IMAGING FEATURES OR INDOLENT BEHAVIOR). RECOMMEND 12-MONTH SCREENING LDCT. Other Significant Findings: Reading Location: [id number]
== END | disposition home or self-care (01) ==
LOC: CT 14:51
PROVIDERS: PCP Family Medicine; Referring Provider Nurse Practitioner Acute Care; Visit Provider Nurse Practitioner Acute Care
DX: F17.210 Nicotine dependence, cigarettes, uncomplicated (principal)
CPT/HCPCS: 71271

== ENCOUNTER → 2025-03-29 | Outpatient (CLI) | payer MEDICARE, SELFPAY | END | disposition home or self-care (01) | LOC: PSN 10:34 | PROVIDERS: PCP Family Medicine; Referring Provider Nurse Practitioner Acute Care; Visit Provider Nurse Practitioner Acute Care | DX: J44.9 Chronic obstructive pulmonary disease, unspecified (principal) | CPT/HCPCS: 94060; 94726; 94729 ==

== ENCOUNTER → 2025-03-31 | Outpatient (CLI) | payer MEDICARE, SELFPAY ==
[2025-03-31 13:38] VITALS: PULSE 53; PULSE 58; PULSE 82; PULSE 87; PULSE 88; PULSE 89; O2SAT 86; O2SAT 92; O2SAT 94; O2SAT 95; O2SAT 97
--- NOTE | 2025-03-31 13:40 | CPS ---
Patient states that he has oxygen at home at 2lpm, he uses it PRN. Patient was able to walk 472 ft in three minutes before SpO2 dropping to 86% on room air. Applied 2lpm O2 nasal cannula, SpO2 recovered to 96%. Patient walked the remaining three minutes of testing, on 2lpm O2, for another 472 ft, SpO2 >94%.
--- NOTE | 2025-04-02 11:54 | WT_ITS ---
PSN 6 Minute Walk Test 6 Minute Walk Test 6 Minute Walk Test: 6 Minute Walk Test PSN:6-Minute Walk Test Start: 03/31/25 13:38 Freq: Status: Active Protocol: RESP.6MINW Document 03/31/25 13:38 CHANTE (Rec: 03/31/25 13:44 CHANTE [id number]) 6 Minute Walk Test Date Performed 03/31/25 Time Performed 13:30 Height 5 ft 9 in Weight: 230 lb Weight in Pounds 230.[address]: Tamica Medina [employer] Assistive device None used: Pre-test Oxygen Delivery Room Air Method Pulse Ox (%) 95 Pulse Rate (60-100 53 L beats/min) Dyspnea Ami Scale ( 0 0-10) Exertion Ami Scale 6 (6-20) 1st minute Oxygen Delivery Room Air Method Pulse Ox (%) 92 Pulse Rate (60-100 87 beats/min) 2nd minute Oxygen Delivery Room Air Method Pulse Ox (%) 94 Pulse Rate (60-100 89 beats/min) 3rd minute Oxygen Delivery Room Air Method Pulse Ox (%) 86 Pulse Rate (60-100 88 beats/min) 4th minute Oxygen Flow Rate (L/ 2 min) (L/min) Oxygen Delivery Nasal Cannula Method Pulse Ox (%) 97 Pulse Rate (60-100 82 beats/min) 5th minute Oxygen Flow Rate (L/ 2 min) (L/min) Oxygen Delivery Nasal Cannula Method Pulse Ox (%) 95 Pulse Rate (60-100 87 beats/min) 6th minute Oxygen Flow Rate (L/ 2 min) (L/min) Oxygen Delivery Nasal Cannula Method Pulse Ox (%) 94 Pulse Rate (60-100 88 beats/min) Dyspnea Ami Scale ( 2 0-10) Exertion Ami Scale 12 (6-20) Post-test Oxygen Flow Rate (L/ 2 min) (L/min) Oxygen Delivery Nasal Cannula Method Pulse Ox (%) 95 Pulse Rate (60-100 58 L beats/min) Full Laps Walked 16 Partial Lap, Number 0 of Tiles Walked Total Distance 944 Walked (ft) 03/31/25 13:40 Cardiopulmonary Services by Pavithra Rogers Patient states that he has oxygen at home at 2lpm, he uses it PRN. Patient was able to walk 472 ft in three minutes before SpO2 dropping to 86% on room air. Applied 2lpm O2 nasal cannula, SpO2 recovered to 96%. Patient walked the remaining three minutes of testing, on 2lpm O2, for another 472 ft, SpO2 >94%. Initialized on 03/31/25 13:40 - END OF NOTE Interpretation Interpretation: The patient ambulated 944 feet over the course of 6 minutes beginning on room air without assistive devices. Pretesting oxygen saturation was noted to be 95% on room air. With ambulation, the [place]ako oxygen saturation was 86%, requiring the initiation of 2 L/min of supplemental oxygen to maintain appropriate saturations with exertion. Recommendations Recommendations: 2 L/min of supplemental oxygen should be utilized with exertion.
== END | disposition home or self-care (01) ==
LOC: PSN 13:18
PROVIDERS: PCP Family Medicine; Referring Provider Nurse Practitioner Acute Care; Visit Provider Nurse Practitioner Acute Care
DX: J44.9 Chronic obstructive pulmonary disease, unspecified (principal)
CPT/HCPCS: 94618